=== PATIENT | male | born 1930 | race Caucasian/White ===

== ENCOUNTER 2022-05-19 22:42 | Emergency (ER) | payer OTHER ==
[~2022-05-19] VITALS: Ht 170.2 cm; Wt 74.8 kg
[2022-05-19 22:45] VITALS: BP 135/72
--- NOTE | 2022-05-19 22:45 | NUR ---
pt to bed 6
[2022-05-19] MEDS ORDERED: LIDOCAINE/EPI MPF 1%1:200000 30 ML VIAL INJ ONE (23:00)
[2022-05-19] MEDS ORDERED: BACITRACIN OINT 500 UNITS/GM PKT TP ONE (23:00)
--- NOTE | 2022-05-19 23:08 | NUR ---
Dr. Atkins examining patient.
--- NOTE | 2022-05-19 23:40 | NUR ---
Patient discharged with v/s stable. Written and verbal after care instructions given and explained. Patient verbalized understanding. Ambulatory with steady gait. All questions addressed prior to discharge. Advised to follow up with PMD.
== END 2022-05-19 23:40 | disposition home or self-care (01) ==
LOC: MED 22:42
DX: I83.891 Varicose veins of right lower extremity with other complications (principal); K21.9 Gastro-esophageal reflux disease without esophagitis; I10 Essential (primary) hypertension; Z88.0 Allergy status to penicillin
CPT/HCPCS: 99282; J2001